=== PATIENT | male | born 1960 | race Caucasian/White ===

== ENCOUNTER → 2018-09-02 10:58 | Outpatient (CLI) | payer OTHER, SELFPAY ==
--- NOTE | 2018-09-02 | DI.RAD.S_ITS ---
PROCEDURE: XR SHOULDER LT MIN 2V INDICATIONS: LEFT SHOULDER PAIN TECHNIQUE: 3 views of the shoulder were acquired. COMPARISON: None. FINDINGS: Bones: Mild acromioclavicular joint and glenohumeral joint osteoarthritis is seen. No fractures or dislocations. No suspicious bony lesions. Visualized ribs appear intact. Soft tissues: No suspicious soft tissue calcifications. IMPRESSION: Mild left shoulder joint osteoarthritis. Dictated by: Tera Cleaning M.D. on 09/02/2018 at 11:52 Approved by: Tera Cleaning M.D. on 09/02/2018 at 11:53
== END ==
PROVIDERS: PCP Family Medicine; Visit Provider Family Medicine
DX: M19.012 Primary osteoarthritis, left shoulder (principal)
CPT/HCPCS: 73030

== ENCOUNTER 2021-09-11 22:29 | Emergency (ER) | payer OTHER, SELFPAY ==
[2021-09-11 22:33] VITALS: BP 209/110; PULSE 84; RESP 20; TEMP 37; O2SAT 97; BMI 38.4
[2021-09-11 22:46] VITALS: BP 186/119; PULSE 86; O2SAT 97
[2021-09-11 23:00] VITALS: BP 181/106; PULSE 85; O2SAT 92
--- NOTE | 2021-09-11 23:07 | ED.GENADULT ---
HPI - General Adult General Chief complaint: Nasal Problem Stated complaint: Bloody Nose Time Seen by Provider: 09/11/21 22:50 Source: patient Mode of arrival: Ambulatory History of Present Illness HPI narrative: Patient is a 61-year-old male arrived by private vehicle for evaluation of a nose bleed. States that it started earlier today. He felt like it was coming from the right nostril and then eventually from both nostrils. Patient also hypertensive upon arrival. Denies chest pain and shortness of breath. Has been diagnosed with hypertension and was on blood pressure medication in the past but stopped taking it several years ago after the prescription ran out. Not on blood thinners. Related Data Previous Rx's Medication Instructions Recorded azithromycin 250 mg tablet 250 mg PO SEE INSTRUCTIONS #1 pac 06/02/16 (Zithromax) lisinopril 10 mg tablet 10 mg PO DAILY #30 tab 09/11/21 Allergies Allergy/AdvReac Type Severity Reaction Status Date / Time No Known Drug Allergies Allergy Verified 09/11/21 22:33 Review of Systems Constitutional Constitutional: Denies fever(s) and Denies headache(s) ENT Ears, Nose, Mouth, and Throat: Denies headache(s) Comments: Nosebleed Cardiovascular Cardiovascular: Reports as per HPI and Reports system reviewed and no additional complaints, except as documented Respiratory Respiratory: Reports as per HPI and Reports system reviewed and no additional complaints, except as documented Neurologic Neurologic: Denies headache(s) Hematologic/Lymphatic On Anticoagulants: No Patient History Medical History Hypertension Social History Smoking Status: Never smoker Smoking Status: Never smoker alcohol intake frequency: 3 or more drinks per day Substance Use Type: does not use Exam Initial Vital Signs Initial Vital Signs: Vital Signs Temperature 98.6 F 09/11/21 22:33 Pulse Rate 84 09/11/21 22:33 Respiratory Rate 20 09/11/21 22:33 Blood Pressure 209/110 H 09/11/21 22:33 Pulse Oximetry 97 09/11/21 22:33 HENMT Head: normal to inspection and normocephalic Nose: septum normal and other (Hematoma right nares) Resp Effort & Inspection: normal respiratory effort Cardio Rate: regular rate Skin General: no rashes or lesions noted Neuro General: patient alert, patient awake and moves all extremities Extrem General: normal to inspection and capillary refill normal Psych Appearance: grossly normal and well kempt Course Vital Signs Vital signs: Vital Signs - 8 hr 09/11/21 22:33 09/11/21 22:46 09/11/21 23:00 Temperature 98.6 F Pulse Rate 84 86 85 Respiratory Rate 20 Blood Pressure 209/110 H 186/119 H 181/106 H Pulse Oximetry 97 97 92 09/11/21 23:30 Temperature Pulse Rate 92 H Respiratory Rate Blood Pressure 181/105 H Pulse Oximetry Medical Decision Making MDM Narrative Medical decision making narrative: A nasal clamp was placed by nursing staff in triage. When I evaluated the patient the clamp was removed. There was no active bleeding. He was observed for period of time afterwards without any rebleeding. No indication for radiologic studies nor lab testing. Patient is hypertensive but it did improve in the ER without specific blood pressure lowering medications. I had a discussion with him regarding this. It appears that he has been on lisinopril in the past and that feel given his blood pressure today that he most likely has an underlying hypertension. He was given a prescription for lisinopril and instructed to contact his primary doctor for follow-up. He was given return precautions and follow-up instructions. He expressed understanding and agreement. Discharge Plan Departure Patient Disposition: Home Clinical Impression: Epistaxis, Hypertension Instructions: Essential Hypertension, DI for Nosebleed Activity Restrictions/Additional Instructions: I do recommend that you start taking the blood pressure medication as directed. Contact your primary doctor for a follow-up. Return to the emergency department for any new or worsening symptoms. Prescriptions: New lisinopril 10 mg tablet 10 mg PO DAILY Qty: 30 0RF No Action azithromycin [Zithromax] 250 MG tablet 250 mg PO SEE INSTRUCTIONS Qty: 1 0RF Referrals: John Gold MD [Primary Care Provider] -
[2021-09-11 23:30] VITALS: BP 181/105; PULSE 92
== END 2021-09-11 23:49 | disposition home or self-care (01) ==
PROVIDERS: Emergency Provider Emergency Medicine; PCP Family Medicine
DX: R04.0 Epistaxis (principal); I10 Essential (primary) hypertension
CPT/HCPCS: 99281

== ENCOUNTER 2022-02-18 17:14 | Observation (INO) | payer OTHER, SELFPAY ==
[2022-02-18] VITALS (16 sets, daily range): BP systolic 138–163; BP diastolic 73–92; PULSE 75–110; RESP 14–30; TEMP 36.8; O2SAT 91–97
--- NOTE | 2022-02-18 17:23 | DI.RAD.S_ITS ---
PROCEDURE: XR CHEST 1V INDICATIONS: chest pain TECHNIQUE: One view of the chest was acquired. COMPARISON: None. FINDINGS: Surgical changes and devices: None. Lungs and pleura: Lordotic positioning is noted, which partially obscures the lung bases. Lungs are clear. No pleural effusions or pneumothorax. Mediastinum: Mediastinal contours appear normal. Heart size is normal. Bones and chest wall: No suspicious bony lesions. Overlying soft tissues appear unremarkable. IMPRESSION: No acute cardiopulmonary abnormality. Dictated by: Byron Britton M.D. on 02/18/2022 at 17:36 Approved by: Byron Britton M.D. on 02/18/2022 at 17:37
[2022-02-18 17:53] LABS: Add Manual Diff / Slide Review NO; Basophils Absolute Auto 100 /uL (0-100); Basophils Percent Auto 0.8 % (0-2); Eosinophils Absolute Auto 100 /uL (0-450); Eosinophils Percent Auto 0.8 % (2-4); Hematocrit 47.3 % (41-53); Hemoglobin 16.5 g/dL (13.5-17.5); Lymphocytes Absolute Auto 1800 /uL (1100-4500); Lymphocytes Percent Auto 24.6 % (25-40); Mean Corpuscular HGB Conc 34.9 % (30-36); Mean Corpuscular Volume 91.7 fL (80-100); Monocytes Absolute Auto 600 /uL (0-900); Monocytes Percent Auto 7.9 % (3-14); Neutrophils Absolute Auto 4800 /uL (1500-7000); Neutrophils Percent Auto 65.9 % (50-75); Platelet Count 230 X10^3/uL (150-400); Red Blood Cell Count 5.16 X10^6/uL (4.5-5.9); Red Cell Distribution Width 13.7 % (11.6-14.8); White Blood Cell Count 7.3 X10^3/uL (4.5-11.0)
[2022-02-18 17:56] LABS: Alanine Aminotransferase 47 IU/L (<50); Albumin 4.9 g/dL (3.5-5.0); Albumin Globulin Ratio 1.3 (1.0-2.8); Alkaline Phosphatase 75 U/L (38-126); Aspartate Aminotransferase 41 IU/L (17-59); BUN Creatinine Ratio 15.1 (6-22); Bilirubin Total 0.9 mg/dL (0.2-1.3); Blood Urea Nitrogen 13 mg/dL (9-20); Calcium 9.5 mg/dL (8.4-10.2); Carbon Dioxide 26 mmol/L (22-32); Chloride 98 mmol/L (98-107); Creatine Kinase 69 U/L (55-170); Estimated Glomerular Filt Rate > 60 mL/min (>60); Globulin 3.7 g/dL (1.7-4.1); Glucose 154 mg/dL (80-110); HEMOLYSIS < 15 (0-50); Lipase 58 U/L (23-300); Magnesium 1.6 mg/dL (1.6-2.3); Potassium 4.1 mmol/L (3.4-5.1); Sodium 137 mmol/L (137-145); Total Protein 8.6 g/dL (6.3-8.2)
--- NOTE | 2022-02-18 18:03 | ED.DIZZY ---
HPI - Dizziness General Chief Complaint: Dizziness Stated Complaint: dizzy, weakness Time Seen by Provider: 02/18/22 18:00 Source: patient Mode of arrival: Wheelchair History of Present Illness HPI Narrative: 61M nonsmoker with history of HTN presents with his in the chief complaint of significant dizziness associated with nausea and vomiting since last night. He denies any fever or chills nor any recent trauma or head injury. He states that he thinks it started rather suddenly and seems to be consistent with the room spinning. He states that if he closes his eyes and lays flat his symptoms completely resolve but if he sits up or turns his head he becomes profoundly dizzy and vomits. He denies any medication or dietary change. He denies any history of the same. He is had no chest pain or shortness of breath nor abdominal pain, diarrhea or constipation. He denies dysuria, frequency or urgency. He denies any recent diving, long distance travel or air travel Related Data Home Medications Medication Instructions Recorded Confirmed amlodipine 5 mg tablet 5 mg PO DAILY 02/18/22 02/18/22 Previous Rx's Medication Instructions Recorded lisinopril 10 mg tablet 10 mg PO DAILY #30 tabs 09/11/21 Allergies Allergy/AdvReac Type Severity Reaction Status Date / Time No Known Drug Allergies Allergy Verified 09/11/21 22:33 Review of Systems Review of Systems Narrative: GENERAL: Denies chills, fatigue, malaise, fever, sweats. HEENT: Denies sinus pain, ear pain, sore throat, difficulty swallowing, dizziness. RESPIRATORY: Denies dyspnea, cough, wheezing, hemoptysis, sputum. CARDIOVASCULAR: Denies chest pain, palpitations, orthopnea, edema, GASTROINTESTINAL: See HPI : Denies dysuria, frequency, incontinence, hematuria, urinary retention. MUSCULOSKELETAL: denies weakness, joint pain, or bony pain SKIN: Denies rash, skin lesions, or other NEUROLOGIC: See HPI PSYCHIATRIC: No concerning psychosocial issues. 12 point review of systems is negative except for those stated above Patient History Medical History Hypertension Social History household members: spouse Smoking Status: Never smoker alcohol intake: current Smoking Status: Never smoker alcohol intake frequency: 3 or more drinks per day Substance Use Type: does not use Exam Narrative Exam Narrative: GENERAL: [61] year old patient appears stated age. Well-developed patient, in obvious distress, holding an emesis bag HEAD: Atraumatic. Normocephalic. EYES: Pupils equal round and reactive. Extraocular motions intact. No scleral icterus. No injection or drainage. Horizontal nystagmus with fast twitch to the left, significantly worse when looking left than when looking right ENT: Nose without bleeding, purulent drainage. Throat without erythema, tonsillar hypertrophy or exudate. Airway patent. NECK: Trachea midline. Non tender CARDIOVASCULAR: Tachycardic but regular rhythm without murmurs, gallops, or rubs. RESPIRATORY: Clear to auscultation. Breath sounds equal bilaterally. No wheezes, rales, or rhonchi. GASTROINTESTINAL: Abdomen soft, non-tender, nondistended. EXTREMITIES: No edema or joint tenderness. BACK: Nontender without deformity or crepitance. No flank tenderness. NEURO: AOx3. SKIN: No rash or erythema of visible areas Initial Vital Signs Initial Vital Signs: Vital Signs Temperature 98.2 F 02/18/22 17:21 Pulse Rate 110 H 02/18/22 17:21 Respiratory Rate 24 02/18/22 17:21 Pulse Oximetry 96 02/18/22 17:21 Oxygen Delivery Method 02/18/22 17:21 Course Orders Ordered: ED Orders 02/18/22 20:33 COVID19 -Nasal RAPID/Pre-Proc Stat 02/18/22 21:17 CT head/brain wo con Stat Acetaminophen (Acetaminophen 325 Mg Tablet) 650 mg PO Q6HR PRN PRN Reason: Fever/Mild Pain (1-3) Amlodipine Besylate (Amlodipine 5 Mg Tablet) 5 mg PO DAILY [facility] Enoxaparin Sodium (Enoxaparin 40 Mg/0.4 Ml Syringe) 40 mg SUBCUT DAILY [facility] Sodium Chloride (Normal Saline 0.9%) 1,000 mls @ 60 mls/hr IV CONT KRYSTAL Last Admin: 02/19/22 01:58 Dose: 60 mls/hr Documented By: ANDRY Ketorolac Tromethamine (Ketorolac 30 Mg/Ml Vial) 30 mg IV Q6H [facility] Stop: 02/22/22 00:14 Last Admin: 02/19/22 01:58 Dose: 30 mg Documented By: ANDRY Lisinopril (Lisinopril 10 Mg Tablet) 10 mg PO DAILY [facility] Olanzapine (Olanzapine Odt 10 Mg Tab) 10 mg PO PRN PRN PRN Reason: Nausea And Vomiting Ondansetron HCl (Ondansetron 4 Mg/2 Ml Inj) 4 mg IV Q4HR PRN PRN Reason: Nausea And Vomiting Promethazine HCl (Promethazine 12.5 Mg Supp) 12.5 mg CO Q6HR PRN PRN Reason: Nausea And Vomiting Discontinued Medications Sodium Chloride (Normal Saline 0.9%) 1,000 mls @ 1,000 mls/hr IV BOLUS ONE Stop: 02/18/22 19:12 Last Infusion: 02/18/22 21:37 Dose: 0 mls/hr Documented By: Admin: 02/18/22 18:18 Dose: 1,000 mls/hr Documented By: FLORES Lorazepam (Lorazepam 2 Mg/Ml Inj) 1 mg IV NOW ONE Stop: 02/18/22 20:19 Last Admin: 02/18/22 20:23 Dose: 1 mg Documented By: GAVIN Meclizine HCl (Meclizine Hcl 12.5 Mg Tablet) 50 mg PO NOW ONE Stop: 02/18/22 18:55 Last Admin: 02/18/22 19:37 Dose: 50 mg Documented By: GLEN Ondansetron HCl (Ondansetron 4 Mg/2 Ml Inj) 4 mg IV NOW ONE Stop: 02/18/22 18:11 Last Admin: 02/18/22 18:18 Dose: 4 mg Documented By: FLORES Ondansetron HCl (Ondansetron 4 Mg/2 Ml Inj) 4 mg IV NOW ONE Stop: 02/18/22 21:57 Last Admin: 02/18/22 21:58 Dose: 4 mg Documented By: GAVIN Pantoprazole Sodium (Pantoprazole 40 Mg Vial) 40 mg IV NOW ONE Stop: 02/18/22 18:55 Last Admin: 02/18/22 19:00 Dose: 40 mg Documented By: GAVIN Scopolamine (Scopolamine 1 Patch) 1 patch TOP NOW ONE Stop: 02/19/22 00:16 Last Admin: 02/19/22 01:56 Dose: 1 patch Documented By: ANDRY Vital Signs Vital signs: Vital Signs - 8 hr 02/18/22 19:44 02/18/22 19:00 02/18/22 19:00 Pulse Rate 75 88 Respiratory Rate 14 26 H Blood Pressure 148/79 H 147/87 H Pulse Oximetry 95 94 Oxygen Delivery Method Room Air 02/18/22 19:30 02/18/22 19:30 02/18/22 20:00 Pulse Rate 85 Respiratory Rate 25 H Blood Pressure 148/79 H 153/82 H Pulse Oximetry 93 Oxygen Delivery Method 02/18/22 20:00 02/18/22 20:30 02/18/22 20:30 Pulse Rate 85 85 Respiratory Rate 20 24 Blood Pressure 150/79 H Pulse Oximetry 94 92 Oxygen Delivery Method 02/18/22 22:14 02/18/22 22:14 02/18/22 22:30 Pulse Rate 99 H 97 H Respiratory Rate Blood Pressure 146/92 H Pulse Oximetry 92 94 Oxygen Delivery Method Room Air 02/18/22 23:00 02/18/22 23:30 02/19/22 00:00 Pulse Rate 102 H 87 89 Respiratory Rate Blood Pressure Pulse Oximetry 93 91 93 Oxygen Delivery Method MDM - Dizziness Lab Data Result diagrams: 02/18/22 17:34 02/18/22 17:34 Labs: Lab Results 02/18/22 02/18/22 02/18/22 Range/Units 17:24 17:34 17:34 WBC 7.3 (4.5-11.0) X10^3/uL RBC 5.16 (4.5-5.9) X10^6/uL Hgb 16.5 (13.5-17.5) g/dL Hct 47.3 (41-53) % MCV 91.7 (80-100) fL MCH 32.0 (26-34) PG MCHC 34.9 (30-36) % RDW 13.7 (11.6-14.8) % Plt Count 230 (150-400) X10^3/uL Neut % (Auto) 65.9 (50-75) % Lymph % (Auto) 24.6 L (25-40) % [place] % (Auto) 7.9 (3-14) % Eos % (Auto) 0.8 L (2-4) % Baso % (Auto) 0.8 (0-2) % Neut # (Auto) 4800 (9510-4897) /uL Lymph # (Auto) 1800 (6750-9347) /uL [place] # (Auto) 600 (0-900) /uL Eos # (Auto) 100 (0-450) /uL Baso # (Auto) 100 (0-100) /uL Sodium 137 (137-145) mmol/L Potassium 4.1 (3.4-5.1) mmol/L Chloride 98 (98-107) mmol/L Carbon Dioxide 26 (22-32) mmol/L BUN 13 (9-20) mg/dL Creatinine 0.86 (0.66-1.25) mg/dL Estimated GFR > 60 (>60) mL/min BUN/Creatinine Ratio 15.1 (6-22) Glucose 154 H (80-110) mg/dL Hemoglobin A1c 5.5 (4.0-6.0) % Calcium 9.5 (8.4-10.2) mg/dL Magnesium 1.6 (1.6-2.3) mg/dL Total Bilirubin 0.9 (0.2-1.3) mg/dL AST 41 (17-59) IU/L ALT 47 (<50) IU/L Alkaline Phosphatase 75 (38-126) U/L Total Creatine Kinase 69 (55-170) U/L CK-MB (CK-2) TNP CK-MB (CK-2) Rel Index TNP Troponin I < 0.012 (0.01-0.034) ng/mL Total Protein 8.6 H (6.3-8.2) g/dL Albumin 4.9 (3.5-5.0) g/dL Globulin 3.7 (1.7-4.1) g/dL Albumin/Globulin Ratio 1.3 (1.0-2.8) Lipase 58 (23-300) U/L SARS-CoV-2 (PCR) (Negative) 02/18/22 Range/Units 20:33 WBC (4.5-11.0) X10^3/uL RBC (4.5-5.9) X10^6/uL Hgb (13.5-17.5) g/dL Hct (41-53) % MCV (80-100) fL MCH (26-34) PG MCHC (30-36) % RDW (11.6-14.8) % Plt Count (150-400) X10^3/uL Neut % (Auto) (50-75) % Lymph % (Auto) (25-40) % [place] % (Auto) (3-14) % Eos % (Auto) (2-4) % Baso % (Auto) (0-2) % Neut # (Auto) (2121-4110) /uL Lymph # (Auto) (5307-8790) /uL [place] # (Auto) (0-900) /uL Eos # (Auto) (0-450) /uL Baso # (Auto) (0-100) /uL Sodium (137-145) mmol/L Potassium (3.4-5.1) mmol/L Chloride (98-107) mmol/L Carbon Dioxide (22-32) mmol/L BUN (9-20) mg/dL Creatinine (0.66-1.25) mg/dL Estimated GFR (>60) mL/min BUN/Creatinine Ratio (6-22) Glucose (80-110) mg/dL Hemoglobin A1c (4.0-6.0) % Calcium (8.4-10.2) mg/dL Magnesium (1.6-2.3) mg/dL Total Bilirubin (0.2-1.3) mg/dL AST (17-59) IU/L ALT (<50) IU/L Alkaline Phosphatase (38-126) U/L Total Creatine Kinase (55-170) U/L CK-MB (CK-2) CK-MB (CK-2) Rel Index Troponin I (0.01-0.034) ng/mL Total Protein (6.3-8.2) g/dL Albumin (3.5-5.0) g/dL Globulin (1.7-4.1) g/dL Albumin/Globulin Ratio (1.0-2.8) Lipase (23-300) U/L SARS-CoV-2 (PCR) Negative (Negative) Imaging Data CT scan - head: Radiologist's Impression: [address] [address] [address] Scan Report Signed Patient: Tylor Garcia MR#: [id number] : 1960 Acct:[id number] Age/Sex: 61 / M Date of Service: 02/18/22 Loc: ED Accession Number: [id number] ?? Procedure: CT head/brain wo con Ordering Provider: Buck Hahn D.O. PROCEDURE:? CT HEAD/BRAIN WO CON ? INDICATIONS:? profound dizziness, not improved with typical therapies ? TECHNIQUE:? Noncontrast 4.5 mm thick angled axial sections acquired from the foramen magnum to the vertex, with coronal and sagittal reformats.? For radiation dose reduction, the following was used:? automated exposure control, adjustment of mA and/or kV according to patient size.? ? COMPARISON:? [facility], CT, HEAD WITHOUT CONTRAST, 07/29/2010, 9:49. ? FINDINGS:? Image quality:? Excellent.? ? CSF spaces:? Basal cisterns are patent.? No extra-axial fluid collections.? Ventricles are normal in size and shape.? ? Brain:? No intracranial hemorrhage, mass, or mass effect.? Morales-white matter interface appears preserved.? ? Skull and face:? Calvarium and visualized facial bones are intact, without suspicious lesions.? ? Sinuses:? Visualized sinuses and mastoids are clear.? ? IMPRESSION:? ? 1. No acute intracranial abnormality.? ? Dictated by: Jorge Croft M.D. on 02/18/2022 at 22:17 ? ? Approved by: Jorge Croft M.D. on 02/18/2022 at 22:18 ? [facility] Narrative Medical decision making narrative: Patient with profound reproducible dizziness and nystagmus with minimal improvement after fluids, meclizine, Zofran, and Ativan. Head CT is unremarkable. Patient requires hospitalization for stabilization condition and further evaluation for possible posterior circulation stroke with likely MRI. Despite multiple medications he is not tolerating orals and has persistent vomiting Discharge Plan Departure Patient Disposition: Admitted as Observation Clinical Impression: Vertigo, Intractable vomiting Admit Date/Time: 02/19/22 00:03 Admit Provider: Edelmira Rodriguez
[2022-02-18 18:08] LABS: Troponin I < 0.012 ng/mL (0.01-0.034)
[2022-02-18] MEDS: ONDANSETRON 4 MG/2 ML INJ IV ×2 (18:18→21:58)
[2022-02-18] MEDS: SODIUM CHLORIDE 0.9% 1,000 ML 1000 ML IV (18:18)
[2022-02-18] MEDS: PANTOPRAZOLE 40 MG VIAL IV (19:00)
[2022-02-18] MEDS: MECLIZINE HCL 12.5 MG TABLET 50 MG PO (19:37)
[2022-02-18] MEDS: LORazepam 2 MG/ML INJ 1 MG IV (20:23)
--- NOTE | 2022-02-18 21:17 | DI.CT.S_ITS ---
PROCEDURE: CT HEAD/BRAIN WO CON INDICATIONS: profound dizziness, not improved with typical therapies TECHNIQUE: Noncontrast 4.5 mm thick angled axial sections acquired from the foramen magnum to the vertex, with coronal and sagittal reformats. For radiation dose reduction, the following was used: automated exposure control, adjustment of mA and/or kV according to patient size. COMPARISON: [facility], CT, HEAD WITHOUT CONTRAST, 07/29/2010, 9:49. FINDINGS: Image quality: Excellent. CSF spaces: Basal cisterns are patent. No extra-axial fluid collections. Ventricles are normal in size and shape. Brain: No intracranial hemorrhage, mass, or mass effect. Morales-white matter interface appears preserved. Skull and face: Calvarium and visualized facial bones are intact, without suspicious lesions. Sinuses: Visualized sinuses and mastoids are clear. IMPRESSION: 1. No acute intracranial abnormality. Dictated by: Jorge Croft M.D. on 02/18/2022 at 22:17 Approved by: Jorge Croft M.D. on 02/18/2022 at 22:18
--- NOTE | 2022-02-18 21:50 | PC.NURSE ---
patient back from CT scan. patient reports nausea and vomiting. provider aware and verbal order for zofran 4mg IV.
[2022-02-18 23:05] LABS: COVID19 -Nasal RAPID Negative (Negative)
[2022-02-19] VITALS: PULSE 89; O2SAT 93
[2022-02-19 00:10] VITALS: BP 147/97; PULSE 93; RESP 18; TEMP 37.2; O2SAT 97
--- NOTE | 2022-02-19 00:18 | DI.MRI.S_ITS ---
PROCEDURE: MR STROKE Pre- and post-contrast brain MRI, non-contrast brain MR angiogram, pre- and postcontrast neck MR angiogram INDICATIONS: vertigo intractable n/v TECHNIQUE: Brain: Noncontrast axial T1 spin echo, axial T2 fast spin echo, sagittal and axial FLAIR, coronal T2 fast spin echo, axial gradient echo, axial diffusion and ADC through the brain. After the administration of contrast, axial 3D VIBE of the cranial vasculature and brain. Brain MRA: Non-contrast 3-D time of flight MR angiogram, with multiple esehnft-iegbjqixn-aqnzxjgcrc (MIP) reformats performed. Neck MRA: Axial and sagittal TruFISP through the neck. Coronal dynamic MR angiogram during administration of contrast in the arterial and venous phases, with 3-dimenstional zomczoj-nrqypuldj-rosmyagnpd (MIP) reformats constructed from subtraction images. COMPARISON: [facility], CT, CT HEAD/BRAIN WO CON, 02/18/2022, 21:45. FINDINGS: Image quality: Excellent. BRAIN: CSF spaces: Ventricles are normal in size and shape. Basal cisterns are patent. No extra-axial fluid collections. Brain: No intracranial bleeds or mass effects. Morales-white matter interface is normal. Diffusion weighted images show no acute ischemic insults. Brainstem appears normal. Normal intravascular flow voids are present. No abnormal intracranial enhancement. Skull and face: Calvarial marrow signal is normal. Orbits appear normal. Sinuses: Sinuses and mastoids are clear. BRAIN MR ANGIOGRAM: Anterior circulation: Intracranial internal carotid arteries are normal in size and enhancement. The flow within the paired anterior cerebral arteries is normal and symmetric. The flow within the middle cerebral arteries is normal and symmetric. The anterior communicating artery is seen. No stenoses, occlusions, or aneurysms. Posterior circulation: The visualized portions of the vertebral arteries demonstrate normal caliber, and join to form a normal appearing basilar artery. The flow within the posterior cerebral arteries is normal and symmetric. No stenoses, occlusions, or aneurysms. NECK MR ANGIOGRAM: Carotids: Great vessels demonstrate a conventional anatomy as they arise from the aortic arch. The origins of the common carotid arteries appear patent. The calibers and courses of both common carotid arteries are normal. The bifurcation regions appear normal bilaterally. The internal carotid arteries demonstrate normal course and caliber. Posterior circulation: The origins of the vertebral arteries appear patent. More superior portions of both vertebral arteries demonstrate normal course and caliber, and join to form a normal appearing basilar artery. Miscellaneous: Subclavian arteries appear patent. Pre-contrast images through the neck show no soft tissue abnormalities. IMPRESSION: BRAIN MRI: No evidence of acute infarction. No intracranial bleed, midline shift or mass effect. No area of abnormal intracranial enhancement. BRAIN MR ANGIOGRAM: No hemodynamically significant stenosis or aneurysm is seen in visualized intracranial circulation. NECK MR ANGIOGRAM: No hemodynamically significant stenosis are noted in bilateral carotid arteries and vertebral arteries. Dictated by: Tera Cleaning M.D. on 02/19/2022 at 8:36 Approved by: Tera Cleaning M.D. on 02/19/2022 at 8:39
[2022-02-19 00:20] VITALS: BMI 40.9
--- NOTE | 2022-02-19 00:21 | PC.NURSE ---
Pt arrived to @0015 via w/c on RA, denies px, and reports feeling dizzy after standing up. Pt oriented to room, call light within reach, and bed is locked and in low position.
[2022-02-19] MEDS: SCOPOLAMINE 1 PATCH TOP (01:56)
[2022-02-19] MEDS: SODIUM CHLORIDE 0.9% 1,000 ML 60 ML IV (01:58)
[2022-02-19] MEDS: KETOROLAC 30 MG/ML VIAL IV ×2 (01:58→05:55)
[2022-02-19 02:02] LABS: Hemoglobin A1C% w Est Avg Glu 5.5 % (4.0-6.0)
[2022-02-19 04:00] VITALS: BP 133/80; PULSE 71; RESP 16; TEMP 36.5; O2SAT 98
--- NOTE | 2022-02-19 05:29 | P.HP_ITS ---
History of Present Illness History of Present Illness Date Patient Seen: 02/19/22 Time Patient Seen: 12:21 Chief complaint: dizzy, weakness Narrative: Tylor Garcia is a 61 year old male with history of HTN presented with a chief complaint of significant dizziness associated with nausea and vomiting since last night.? He denies any fever, body aches, chills, nasal congestion, eye irritation, cough, ear infections, injury or pain, no recent travel to altitude, air travel, or diving, no recent illness injury, trauma or head injury.? He states that he thinks it started rather suddenly last evening while moving around at home, reports the room spinning as spinning.? He states that if he closes his eyes and lays flat his symptoms completely resolve but if he sits up or turns his head he becomes profoundly dizzy and vomits, observed horizontal rotary nystagmus to the left, He denies any medication or dietary change.? He denies any history of the same. Though patient notes he did have a nasal septal issue when he went to altitude approximately 30 years ago. Patient denies chest pain, shortness of breath, abdominal pain, diarrhea, constipation, dysuria, frequency or urgency.? Patient denies any cardiopulmonary history. Patient is examined for admits in the ED he is resting comfortably in bed and states in this position he has no symptoms at this time, he last vomited a couple hours ago, patient has received fluids Zofran, Protonix, meclizine, and Ativan in the ED but continued to fail oral challenge. Patient's vitals are stable upon admit temp 98.2?, BP 146/92, HR 99, R 24, O2 saturation 92% on room air. Patient's CBC and CMP are all within normal limits with the exception of a glucose of 154 with no reported history of diabetes, lipase and COVID are negative, head CT is negative for any intracranial process, chest x-ray is negative for any cardiopulmonary process. I personally reviewed patient's EKG normal sinus rhythm, rate 91, without ST or T-wave changes. Patient admitted for intractable nausea vomiting with vertigo, and hypergylcemia. Patient History Medical History (Updated 02/19/22 @ 05:41 by MELLISSA Guthrie) Hypertension Morbid obesity with BMI of 40.0-44.9, adult Comment: No Prior Surgical Procedures Family & Social History Family History Father Hypertension Mother Hypertension Social History: household members spouse, retired Prior Living Arrangements House Safety & Behavioral: Feels Safe in Current Yes Environment Been Physically Hurt or No Threatened By a Person Tobacco & Substance use: Smoking Status Never smoker alcohol intake current alcohol intake frequency a few times a week Substance Use Type does not use Meds Home Medications and Allergies Home Medications Medication Instructions Recorded Confirmed Type lisinopril 10 mg tablet 10 mg PO DAILY #30 tabs 09/11/21 02/18/22 Rx amlodipine 5 mg tablet 5 mg PO DAILY 02/18/22 02/18/22 History Allergies Allergy/AdvReac Type Severity Reaction Status Date / Time No Known Drug Allergies Allergy Verified 09/11/21 22:33 Review of Systems Review of Systems Narrative: All 12 point systems reviewed with the patient and are negative except otherwise documented. Exam Vital Signs (past 8 hours): - 02/18/22 22:14 02/18/22 22:14 02/18/22 22:30 Temperature Pulse Rate 99 H 97 H Respiratory Rate Blood Pressure 146/92 H Pulse Oximetry 92 94 Oxygen Delivery Method Room Air Oxygen Flow Rate 02/18/22 23:00 02/18/22 23:30 02/19/22 00:00 Temperature Pulse Rate 102 H 87 89 Respiratory Rate Blood Pressure Pulse Oximetry 93 91 93 Oxygen Delivery Method Oxygen Flow Rate 02/19/22 00:10 02/19/22 00:20 Temperature 99.0 F Pulse Rate 93 H Respiratory Rate 18 Blood Pressure 147/97 H Pulse Oximetry 97 Oxygen Delivery Method Room Air Oxygen Flow Rate 0 Oxygen Delivery Method Room Air Oxygen Flow Rate 0 Narrative Exam Narrative: GENERAL: Pleasant morbidly obese 61-year-old male in obvious distress. HEAD: Atraumatic. Normocephalic. EYES: Pupils equal round and reactive. Extraocular motions intact. No scleral icterus. No injection or drainage.? Horizontal nystagmus with fast twitch to the left, significantly worse when looking left than when looking right ENT: Nose without bleeding, purulent drainage. Throat without erythema, tonsillar hypertrophy or exudate. Airway patent. NECK: Trachea midline. Non tender CARDIOVASCULAR:? regular rhythm without murmurs, gallops, or rubs. RESPIRATORY: Lung sounds in all rebol[place] Clear to auscultation. Breath sounds equal bilaterally. No wheezes, rales, or rhonchi.? GASTROINTESTINAL: Abdomen firm, non-tender, rounded habitus- nondistended, bowel sounds present in all 4 quadrants. EXTREMITIES: No edema or joint tenderness. BACK: Nontender without deformity or crepitance. No flank tenderness. NEURO: AOx3. SKIN: No rash or erythema of visible areas Objective Labs Result Diagrams: 02/18/22 17:34 02/18/22 17:34 Labs: Laboratory Results - last 24 hr 02/18/22 02/18/22 02/18/22 17:24 17:34 17:34 WBC 7.3 RBC 5.16 Hgb 16.5 Hct 47.3 MCV 91.7 MCH 32.0 MCHC 34.9 RDW 13.7 Plt Count 230 Neut % (Auto) 65.9 Lymph % (Auto) 24.6 L Chase % (Auto) 7.9 Eos % (Auto) 0.8 L Baso % (Auto) 0.8 Neut # (Auto) 4800 Lymph # (Auto) 1800 Chase # (Auto) 600 Eos # (Auto) 100 Baso # (Auto) 100 Sodium 137 Potassium 4.1 Chloride 98 Carbon Dioxide 26 BUN 13 Creatinine 0.86 Estimated GFR > 60 BUN/Creatinine Ratio 15.1 Glucose 154 H Hemoglobin A1c 5.5 Calcium 9.5 Magnesium 1.6 Total Bilirubin 0.9 AST 41 ALT 47 Alkaline Phosphatase 75 Total Creatine Kinase 69 CK-MB (CK-2) TNP CK-MB (CK-2) Rel Index TNP Troponin I < 0.012 Total Protein 8.6 H Albumin 4.9 Globulin 3.7 Albumin/Globulin Ratio 1.3 Lipase 58 SARS-CoV-2 (PCR) 02/18/22 20:33 WBC RBC Hgb Hct MCV MCH MCHC RDW Plt Count Neut % (Auto) Lymph % (Auto) Chase % (Auto) Eos % (Auto) Baso % (Auto) Neut # (Auto) Lymph # (Auto) Chase # (Auto) Eos # (Auto) Baso # (Auto) Sodium Potassium Chloride Carbon Dioxide BUN Creatinine Estimated GFR BUN/Creatinine Ratio Glucose Hemoglobin A1c Calcium Magnesium Total Bilirubin AST ALT Alkaline Phosphatase Total Creatine Kinase CK-MB (CK-2) CK-MB (CK-2) Rel Index Troponin I Total Protein Albumin Globulin Albumin/Globulin Ratio Lipase SARS-CoV-2 (PCR) Negative Assessment & Plan Assessment & Plan narrative: Tylor Garcia is a 61 year old male with history of morbid obesity and HTN presented with acute onset dizziness associated with nausea and vomiting, who after repeated medications fluids and interventions in the ED failed oral challenge and has been admitted for observation. 1. Intractable nausea vomiting and vertigo, acute onset, present on admission -patient's initial workup is unremarkable at this time, suspect this is benign paroxysmal positional vertigo. -patient NPO overnight, continue antiemetics, also scopolamine patch. -gentle rehydration and S at 60 cc/HR -MRI ordered for tomorrow -PT and OT evaluation (Julia-Hallpike Maneuvers) 2. Hypertension, essential, chronic, present on admission -admitting BP 146/92 - sips of water to continue amlodipine/lisinopril 3. Morbid obesity as evidence by BMI of 41, acute on chronic, present on admission -dietary consult placed regarding nutritional Education, lifestyle modification, and weight loss. 4. Hyperglycemia without the diagnosis of diabetes, acute, present on admission -admitting blood sugar 154 -A1c ordered to evaluate for diabetes Code status: Full Surrogate decision maker: Danae HERNANDEZ PCR:Negative DVT/VTE prophylaxis: Lovenox and SCDs Disposition: Patient admitted for observation, expected length of stay less than 2 midnights. I have utilized all available immediate resources to obtain, update, or review the patient's current medications. I confirmed that the patient's advanced care plan is present, Code status is documented and/or surrogate decision maker is listed in the patient's medical record. Time Spent With Patient Critical Care time: I spent a total of [] minutes of critical care time on this patient's care today; this time is exclusive of procedural time. Quality VTE Deep Vein Thrombosis/Pulmonary Embolism Present on Admission: No
[2022-02-19 06:36] LABS: Add Manual Diff / Slide Review NO; Basophils Absolute Auto 0 /uL (0-100); Basophils Percent Auto 0.2 % (0-2); Eosinophils Absolute Auto 100 /uL (0-450); Eosinophils Percent Auto 0.8 % (2-4); Hematocrit 42.2 % (41-53); Hemoglobin 14.9 g/dL (13.5-17.5); Lymphocytes Absolute Auto 1700 /uL (1100-4500); Lymphocytes Percent Auto 23.5 % (25-40); Mean Corpuscular HGB Conc 35.3 % (30-36); Mean Corpuscular Hemoglobin 32.2 PG (26-34); Mean Corpuscular Volume 91.2 fL (80-100); Monocytes Absolute Auto 800 /uL (0-900); Monocytes Percent Auto 11.2 % (3-14); Neutrophils Absolute Auto 4700 /uL (1500-7000); Neutrophils Percent Auto 64.3 % (50-75); Platelet Count 202 X10^3/uL (150-400); Red Blood Cell Count 4.63 X10^6/uL (4.5-5.9); Red Cell Distribution Width 13.5 % (11.6-14.8); White Blood Cell Count 7.4 X10^3/uL (4.5-11.0)
[2022-02-19 06:39] LABS: BUN Creatinine Ratio 15.7 (6-22); Blood Urea Nitrogen 14 mg/dL (9-20); Calcium 8.5 mg/dL (8.4-10.2); Carbon Dioxide 29 mmol/L (22-32); Chloride 101 mmol/L (98-107); Estimated Glomerular Filt Rate > 60 mL/min (>60); Glucose 94 mg/dL (80-110); HEMOLYSIS < 15 (0-50); Potassium 3.7 mmol/L (3.4-5.1); Sodium 139 mmol/L (137-145)
[2022-02-19 07:51] LABS: Appearance Urine UA CLEAR; Bilirubin Urine UA NEGATIVE (NEGATIVE); Color Urine UA YELLOW; Glucose Urine UA NEGATIVE (Negative); Ketones Urine UA 1+ (NEGATIVE); Leukocyte Esterase Urine UA NEGATIVE (NEGATIVE); Nitrite Urine UA NEGATIVE (Negative); Occult Blood Urine UA NEGATIVE (Negative); Protein Urine UA TRACE (Negative); Urobilinogen Urine UA 0.2 E.U./dL (0.2); pH Urine UA 6.5 (4.5-8.0)
[2022-02-19 07:58] LABS: Bacteria Urine None Seen; Culture Indicated Urine Cult Not Indicated; RBC Urine None Seen (0-5/HPF); Urine Comments Microscopic Normal; WBC Urine None Seen (0-5/HPF)
[2022-02-19 08:00] VITALS: BP 137/84; PULSE 79; RESP 18; TEMP 36.2; O2SAT 95
[2022-02-19] MEDS: lisinopriL 10 MG TABLET PO (08:32)
[2022-02-19] MEDS: AMLODIPINE 5 MG TABLET PO (08:32)
[2022-02-19] MEDS: ENOXAPARIN 40 MG/0.4 ML SYRINGE SUBCUT (08:32)
--- NOTE | 2022-02-19 09:05 | CM.DANOTE ---
DCP Assessment: Payor confirmed: Sanford clark PCP confirmed: MD Asif Pt is a 61 y.o. M who presented to the ER with a chief complaint of dizziness with nausea and vomiting. Management was started in the ED but symptoms persisted. CT was done and was unremarkable. Pt admitted to the floor for an MRI and further management of symptoms. DCP met with pt this morning to discuss discharge needs. Pt just got back from MRI and sitting up in bed. DCP introduced herself and role. Pt states he lives in a multi-level house with his , Danae, in [place]. Pt states he is fairly independent at baseline and denies any DME use. Pt still drives POV. Pt denies any previous HH use. Pt to have PT/OT evals today. No discharge needs at this time. DCP to continue to monitor and follow up with healthcare team. Whiteboard updated and instructed to call if needed. Pt thankful for discussion. P: Once medically stable, pt to discharge home via spouse POV. DCP to continue to follow. Carmen Pritchett RN/REMA Discharge Planning/Care Management CM Discharge Assessment Start: 02/19/22 09:04 Freq: Status: Active Protocol: Document 02/19/22 09:04 HEATHER (Rec: 02/19/22 09:05 HEATHER [id number]) Discharge Planning Assessment Assigned Sql Database Developer Carmen Pritchett RN/REMA Advance Directives? No History Provided By Patient Prior Living Arrangements House Household Members spouse Type of transporation used prior to Drives own vehicle admit Independent with ADL's Yes Is patient alert and oriented? Yes Caregiver for Another No Discharge Plan Home Referrals Initiated None needed Whiteboard Updated in Patient Room with Yes name and ext. # of Sql Database Developer Comment Instructed to call if needed Review Status In Process Please Provide Date Initial DC 02/19/22 Assessment Was Performed Next Review Type Continued Stay Review
--- NOTE | 2022-02-19 09:35 | PT.IIE ---
Medical History (Last Updated 02/19/22 @ 05:41 by Edelmira Rodriguez, [facility]) Hypertension Morbid obesity with BMI of 40.0-44.9, adult Physical Therapy Inpatient Evaluation/Re-Eval M1 PT/OT-IP Prior Functional Status Start: 02/19/22 12:36 Freq: NEEDED Status: Active Protocol: Document 02/19/22 09:35 AB (Rec: 02/19/22 12:50 AB [id number]) Medical Review Prior Functional Status Medical History Reviewed Yes Communication able to make needs known Mobility and Gait pt stated that he is independent with all mobilities and ambulation without AD Social History Household Members spouse Living Arrangements House Number of Floors (Floors) 3 or More Floors Number of Stairs To Enter/Railing? 22 steps with R rail descending but part of it do not have rails to enter the house 3 steps without rails to bedroom level 5 steps descent to living room with wide rails Home Environment Standard Height Toilet,High Toilet,Walk in Shower Additional Social History Comment has an adjustable bed M2 PT-IP Current Condition Start: 02/19/22 12:36 Freq: NEEDED Status: Active Protocol: Document 02/19/22 09:35 AB (Rec: 02/19/22 12:50 AB [id number]) Physical Therapy Current Condition Current Condition Evaluation Date 02/19/22 Treatment Diagnosis dizziness; difficulty in walking Onset Date 02/19/22 M3 PT-IP Subjective Start: 02/19/22 12:36 Freq: NEEDED Status: Active Protocol: Document 02/19/22 09:35 AB (Rec: 02/19/22 12:50 AB [email or web address]) Subjective Physical Therapy Visit Type Type Initial Evaluation Visit Start Time 09:35 Visit Stop Time 10:15 Total Visit Minutes 40 Number of DUST COLLECTOR Visits 0 Physical Therapy Visit Comments Patient Comments agreeable to do PT M4 PT-IP Mobility and Gait Start: 02/19/22 12:36 Freq: NEEDED Status: Active Protocol: Document 02/19/22 09:35 AB (Rec: 02/19/22 12:50 AB [email or web address]) PT-Bed Mobility Assessment Supine to Sit Supine to Sit Standby Assistance Sit to Supine Sit to Supine Standby Assistance PT-Transfer Assessment Sit to and From Stand Sit to and from Stand Standby Assistance Equipment Transfer Assistive Device None,Gait Belt Orthotic/Prosthetic Devices or Brace: No Comments Mobility Comments pt stated that dizziness is better and without spinning sensation but with slight head fuzziness. BP in supine: 146 /90. completed supine to sit SBA. able to sit on EOB SBA. no c/o dizziness but just fuzziness per pt. instructed to turn head side to side/ front/back and stated no dizziness. BP in sittin/ 100. ambulated in room without AD SBA to CGA ~ 30 ft. BP after walkin/84 presents with unsteady gait. completed up/down step stool CGA to min A with pt losing his balance and needing to hold on to wall for support. pt requested to go back to bed and completed SBA. Call light and table placed within reach. informed pt regarding vestibular assessment by another PT and pt agreed. Gait Assessment Gait Gait Assistance Required: Standby Assistance,Contact Guard Assist Distance (Feet) 30 Able to Maintain Weight Bearing Status Yes During Gait Assistive Devices Assistive Device None Orthotic/Prosthetic Devices or Brace: No Gait Deviations General Gait Pattern Ataxic,Decreased Stride Length ,Decreased Feet Clearance,Wide Based Gait Factors Limiting Gait Function Factors Limiting Gait Function Decreased Activity Tolerance, Decreased Strength,Poor Balance,Poor Safety Awareness Stair Climbing Assessment Evaluation Level of Assist On Stairs Minimal Assistance,1 Person Assistance Devices Stair Climbing Assistive Devices None Technique/Endurance Stair Climbing Direction Ascend and Descend Stair Climbing Technique Step to Step Number of Steps Climbed 1 Query Text: Stair Climbing Set # Repetitions (reps) 2 PT-Balance Assessment Sitting Balance and Reactions Static Sitting Balance Ability Normal Dynamic Sitting Balance Ability Normal Standing Balance and Reactions Static Standing Balance Ability Fair Dynamic Standing Balance Ability Poor Device Used without AD M5 PT-IP Objective Assessments Start: 02/19/22 12:36 Freq: NEEDED Status: Active Protocol: Document 02/19/22 09:35 AB (Rec: 02/19/22 12:50 AB [id number]) Orientation Orientation/Cognition Level of Alertness Alert Orientation Name,Place,Situation Language Function Ability No Deficits Noted Safety Awareness Understands Safety Issues Memory Description No Deficits Noted Gross Range of Motion Lower Extremity ROM Assessment Within Functional Limits Strength Lower Extremity Strength Assessment Within Functional Limits Sensation Assessment Sensation Gross Sensation WNL Muscle Tone Muscle Tone WNL Yes M6 PT-IP Treatment Start: 02/19/22 12:36 Freq: NEEDED Status: Active Protocol: Document 02/19/22 09:35 AB (Rec: 02/19/22 12:50 AB [id number]) Physical Therapy Treatment Education Education Provided Safety M7 PT-IP Assessment and Plan Start: 02/19/22 12:36 Freq: NEEDED Status: Active Protocol: Document 02/19/22 09:35 AB (Rec: 02/19/22 12:50 AB [id number]) PT Summary Assessment and Plan Potential Status of Condition at Evaluation Evolving Summary Impairments Balance,Gait,Activity Tolerance Assessment Summary pt requiring SBA to CGA with ambulation and presents with unsteady gait, needs CGA to min A with stair climbing with LOB. pt lives with spouse and spouse will be able to assist pt. will continue to assess progress. pt also will have vestibular assessment later today. Goals Bed Mobility Goal Independent Transfer Goal Independent Gait Goal Independent Gait Distance 250 Other Goals up/down 15 steps L rail ascending SBA up/down 15 steps without rail SBA Days to Meet Goals 10 Frequency of Treatment Frequency Of Treatment Twice a Day Treatment Plan Physical Therapy Treatment Plan Bed Mobility Training,Transfer Training,Gait Training, Therapeutic Exercise,Balance Retraining,Discharge Planning, Neuromuscular Re-ed, Coordination Retraining,Manual Therapy Recommendations To Nursing Amount of Assist Needed 1 Person Assist Discharge Recommendations PT Discharge Recommendations Home with Assistance, Outpatient PT Transportation Needs at Discharge Private Vehicle
--- NOTE | 2022-02-19 11:24 | DIET.CONS2 ---
Dietary Inpatient Consultation Note Admission Date: 02/19/2022 00:03 Holding on nutrition consult until pt less dizzy so he can actively participate. Diet: 02/19/22 00:11 NPO Diet Diet Modifications: May Advance Diet as Tolerated: Yes Safety Tray needed?: No NPO Type: NPO except for Ice Chips Electronically Signed by: Maria Hwang 02/19/22 11:24 Clinical Dietitian [address] [id number]
[2022-02-19 12:00] VITALS: BP 138/81; PULSE 61; RESP 18; TEMP 36.1; O2SAT 96
[2022-02-19] MEDS: MECLIZINE HCL 12.5 MG TABLET 25 MG PO (12:28)
--- NOTE | 2022-02-19 13:15 | PT.IIE ---
Medical History (Last Updated 02/19/22 @ 05:41 by Edelmira Rodriguez, [facility]) Hypertension Morbid obesity with BMI of 40.0-44.9, adult Physical Therapy Inpatient Evaluation/Re-Eval M1 PT/OT-IP Prior Functional Status Start: 02/19/22 12:36 Freq: NEEDED Status: Active Protocol: Document 02/19/22 12:04 DCW (Rec: 02/19/22 13:14 DCW [id number]) Medical Review Prior Functional Status Medical History Reviewed Yes Communication WNL Mobility and Gait WNL, Independent, no AD Social History Household Members spouse Living Arrangements House M2 PT-IP Current Condition Start: 02/19/22 12:36 Freq: NEEDED Status: Active Protocol: Document 02/19/22 12:04 DCW (Rec: 02/19/22 13:14 DCW [id number]) Physical Therapy Current Condition Current Condition Evaluation Date 02/19/22 Treatment Diagnosis Dizziness, vertigo Onset Date 02/18/22 M3 PT-IP Subjective Start: 02/19/22 12:36 Freq: NEEDED Status: Active Protocol: Document 02/19/22 12:04 DCW (Rec: 02/19/22 13:14 DCW [id number]) Subjective Physical Therapy Visit Type Type Initial Evaluation Visit Start Time 12:04 Visit Stop Time 12:40 Total Visit Minutes 36 Notes Pt presents with a one day history of sudden onset of spontaneous vertigo. Pt reports he felt slightly off balance 02/17/22, but then yesterday (02/18/22) he was very unstable, experiencing rotational vertigo, and could barely make it 20 feet to the bathroom. Pt reports nausea and vomiting. Pt was able to feel better if he were to lie down and not move, but any attempts at movement with cause dizziness, imbalance, and nausea. Feeling better today, but still off balance with standing and head movement. Number of PROCESS DESIGN ENGINEER Visits 0 Physical Therapy Visit Comments Patient Comments Pt reclining in bed upon PT entering room, entered room shortly afterward. Pt willing to participate in PT evaluation at this time. M4 PT-IP Mobility and Gait Start: 02/19/22 12:36 Freq: NEEDED Status: Active Protocol: Document 02/19/22 12:04 DCW (Rec: 02/19/22 13:14 DCW [id number]) PT-Bed Mobility Assessment Rolling Type of Rolling Roll to Left Level of Assist Independent Supine to Sit Supine to Sit Independent Scooting Scooting to Edge of Bed Independent PT-Transfer Assessment Sit to and From Stand Sit to and from Stand Standby Assistance Equipment Transfer Assistive Device Bed Rail Transfers Transfer Destination Bed,Chair Transfer Technique Stand Step Pivot Transfer Ability Level of Assist Independent,Standby Assistance PT-Balance Assessment Sitting Balance and Reactions Static Sitting Balance Ability Normal Dynamic Sitting Balance Ability Normal Standing Balance and Reactions Static Standing Balance Ability Good Dynamic Standing Balance Ability Fair M5 PT-IP Objective Assessments Start: 02/19/22 12:36 Freq: NEEDED Status: Active Protocol: Document 02/19/22 12:04 DCW (Rec: 02/19/22 13:14 DCW [id number]) Other Assessments Other Other Assessments Spontaneous nystagmus: Left- beating Gaze Nystagmus: 2? left- beating, worse without fixation Head Impulse Test: Positive Saccades and Smooth Pursuit: Affected by spontaneous left nystagmus M6 PT-IP Treatment Start: 02/19/22 12:36 Freq: NEEDED Status: Active Protocol: Document 02/19/22 09:35 AB (Rec: 02/19/22 12:50 AB [id number]) Physical Therapy Treatment Education Education Provided Safety M7 PT-IP Assessment and Plan Start: 02/19/22 12:36 Freq: NEEDED Status: Active Protocol: Document 02/19/22 12:04 DCW (Rec: 02/19/22 13:14 DCW [id number]) PT Summary Assessment and Plan Potential Rehabilitation Potential Good Status of Condition at Evaluation Unstable Summary Impairments Balance Assessment Summary Pt presents with signs and symptoms suggestive of vestibular neuritis vs anterior vestibular artery ischemia. Sudden onset of non- dosition dependent vertigo with symptoms of spontaneous, left-beating nystagmus, nausea , decreased balance, positive head impulse, and 2? gaze nystagmus all suggestive of unilateral vestibular loss. Lack of reported hearling loss should rule out Labrynthitis. Pt still in acute phase of vestibular loss, typical acute treatments include continued use of anti-nausea and anti- dizziness medications, following leveling off of symptoms, pt will likely greatly benefit from skilled outpatient vestibular rehabilitation. Goals Gait Goal Independent Gait Distance 100 Frequency of Treatment Frequency Of Treatment Once a Day Treatment Plan Physical Therapy Treatment Plan Neuromuscular Re-ed Other Recommendations and Next Treatment Vestibular rehab when out of Focus acute phase Recommendations To Nursing Amount of Assist Needed Standby Assistance Discharge Recommendations PT Discharge Recommendations Home Equipment Needed for Home Before May need FWW if instability Discharge continues Transportation Needs at Discharge Private Vehicle
--- NOTE | 2022-02-19 14:06 | PC.NURSE ---
Patient tolerated lunch and meclizine, claims he feels good
--- NOTE | 2022-02-19 14:27 | OT.IPNOTE ---
Attempted to see pt for OT eval and states feeling much better and that he will just take it slow at home and that his can assist him if needed. Suggested may be helpful to use a programs assistant to LB dressing needs and shower chair for safety. Pt not wanting any OT services and hospitalist notified, and left a message for case management. Discharge pt for OT services. NO charge.
--- NOTE | 2022-02-19 15:16 | P.DS_ITS ---
History of Present Illness History of Present Illness Date Patient Seen: 02/19/22 Chief complaint: dizzy, weakness Narrative: Per Edelmira Rodriguez, [facility]-: Tylor Garcia is a 61 year old male with history of HTN presented with a chief complaint of significant dizziness associated with nausea and vomiting since last night.? He denies any fever, body aches, chills, nasal congestion, eye irritation, cough, ear infections, injury or pain, no recent travel to altitude, air travel, or diving, no recent illness injury, trauma or head injury.? He states that he thinks it started rather suddenly last evening while moving around at home, reports the room spinning as spinning.? He states that if he closes his eyes and lays flat his symptoms completely resolve but if he sits up or turns his head he becomes profoundly dizzy and vomits, observed horizontal rotary nystagmus to the left, He denies any medication or dietary change.? He denies any history of the same. Though patient notes he did have a nasal septal issue when he went to altitude approximately 30 years ago. Patient denies chest pain, shortness of breath, abdominal pain, diarrhea, constipation, dysuria, frequency or urgency.? Patient denies any cardiopulmonary history. Patient is examined for admits in the ED he is resting comfortably in bed and states in this position he has no symptoms at this time, he last vomited a couple hours ago, patient has received fluids Zofran, Protonix, meclizine, and Ativan in the ED but continued to fail oral challenge. Patient's vitals are stable upon admit temp 98.2?, BP 146/92, HR 99, R 24, O2 saturation 92% on room air. Patient's CBC and CMP are all within normal limits with the exception of a glucose of 154 with no reported history of diabetes, lipase and COVID are negative, head CT is negative for any intracranial process, chest x-ray is nega tive for any cardiopulmonary process. I personally reviewed patient's EKG normal sinus rhythm, rate 91, without ST or T-wave changes. Patient admitted for intractable nausea vomiting with vertigo, and hypergylcemia. Discharge Providers Provider Date of admission: 02/19/22 00:03 Discharge Date: 02/19/22 Primary care physician: John Gold MD Consults: 02/19/22 00:17 Consult to Occupational Therapy Evaluate & Treat Comment: vertigo Physician Instructions: Evaluate and treat Consult to Physical Therapy Evaluate & Treat Comment: vertigo Physician Instructions: Evaluate and Treat 02/19/22 06:00 Consult to Dietitian, Adult Routine Comment: Reason For Exam: BMI 41 Discharge provider: Francisco Gurrola DO Summary Hospital Course Discharge Diagnosis: 1. Intractable nausea vomiting and vertigo, acute onset, present on admission 2. Hypertension, essential, chronic, present on admission 3. Morbid obesity as evidence by BMI of 41, acute on chronic, present on admission 4. Hyperglycemia without the diagnosis of diabetes, acute, present on admission Hospital Course: Tylor Garcia is a 61 year old male with history of morbid obesity and HTN presented with acute onset dizziness associated with nausea and vomiting, who after repeated medications fluids and interventions in the ED failed oral challenge and was admitted for further observation and given the severity of his presentation rule out for posterior CVA. Patient's MRI was negative for acute infarcts. He slowly began to improve with meclizine, and time. He was seen by PT and vestibular therapy. He felt improved and was able to ambulate unassisted and tolerate oral intake. He was discharged home with prescription for meclizine to continue as needed. Exam Vital Signs (past 8 hours): - 02/19/22 08:00 02/19/22 12:00 Temperature 97.1 F L 96.9 F L Pulse Rate 79 61 Respiratory Rate 18 18 Blood Pressure 137/84 138/81 Pulse Oximetry 95 96 Oxygen Flow Rate 0 0 Oxygen Delivery Method Room Air Oxygen Flow Rate 0 Narrative Exam Narrative: GENERAL: Pleasant morbidly obese 61-year-old male in obvious distress. HEAD: Atraumatic. Normocephalic. CARDIOVASCULAR:? regular rhythm without murmurs, gallops, or rubs. RESPIRATORY: Lung sounds in all [place] Clear to auscultation. Breath sounds equa l bilaterally. No wheezes, rales, or rhonchi.? GASTROINTESTINAL: Abdomen firm, non-tender, rounded habitus- nondistended, bowel sounds present in all 4 quadrants. EXTREMITIES: No edema or joint tenderness. BACK: Nontender without deformity or crepitance. No flank tenderness. NEURO: AOx3. No focal deficits SKIN: No rash or erythema of visible areas Objective Labs Result Diagrams: 02/19/22 06:05 02/19/22 06:05 Labs: Laboratory Results - last 24 hr 02/18/22 02/18/22 02/18/22 17:24 17:34 17:34 WBC 7.3 RBC 5.16 Hgb 16.5 Hct 47.3 MCV 91.7 MCH 32.0 MCHC 34.9 RDW 13.7 Plt Count 230 Neut % (Auto) 65.9 Lymph % (Auto) 24.6 L [place] % (Auto) 7.9 Eos % (Auto) 0.8 L Baso % (Auto) 0.8 Neut # (Auto) 4800 Lymph # (Auto) 1800 [place] # (Auto) 600 Eos # (Auto) 100 Baso # (Auto) 100 Sodium 137 Potassium 4.1 Chloride 98 Carbon Dioxide 26 BUN 13 Creatinine 0.86 Estimated GFR > 60 BUN/Creatinine Ratio 15.1 Glucose 154 H Hemoglobin A1c 5.5 Calcium 9.5 Magnesium 1.6 Total Bilirubin 0.9 AST 41 ALT 47 Alkaline Phosphatase 75 Total Creatine Kinase 69 CK-MB (CK-2) TNP CK-MB (CK-2) Rel Index TNP Troponin I < 0.012 Total Protein 8.6 H Albumin 4.9 Globulin 3.7 Albumin/Globulin Ratio 1.3 Lipase 58 Urine Color Urine Appearance Urine pH Ur Specific [place] Urine Protein Urine Glucose (UA) Urine Ketones Urine Occult Blood Urine Nitrate Urine Bilirubin Urine Urobilinogen Ur Leukocyte Esterase Urine RBC Urine WBC Urine Bacteria Ur Culture Indicated? Micro UA Comment SARS-CoV-2 (PCR) 02/18/22 02/19/22 02/19/22 20:33 06:05 06:05 WBC 7.4 RBC 4.63 Hgb 14.9 Hct 42.2 MCV 91.2 MCH 32.2 MCHC 35.3 RDW 13.5 Plt Count 202 Neut % (Auto) 64.3 Lymph % (Auto) 23.5 L [place] % (Auto) 11.2 Eos % (Auto) 0.8 L Baso % (Auto) 0.2 Neut # (Auto) 4700 Lymph # (Auto) 1700 [place] # (Auto) 800 Eos # (Auto) 100 Baso # (Auto) 0 Sodium 139 Potassium 3.7 Chloride 101 Carbon Dioxide 29 BUN 14 Creatinine 0.89 Estimated GFR > 60 BUN/Creatinine Ratio 15.7 Glucose 94 Hemoglobin A1c Calcium 8.5 Magnesium Total Bilirubin AST ALT Alkaline Phosphatase Total Creatine Kinase CK-MB (CK-2) CK-MB (CK-2) Rel Index Troponin I Total Protein Albumin Globulin Albumin/Globulin Ratio Lipase Urine Color Urine Appearance Urine pH Ur Specific [place] Urine Protein Urine Glucose (UA) Urine Ketones Urine Occult Blood Urine Nitrate Urine Bilirubin Urine Urobilinogen Ur Leukocyte Esterase Urine RBC Urine WBC Urine Bacteria Ur Culture Indicated? Micro UA Comment SARS-CoV-2 (PCR) Negative 02/19/22 07:45 WBC RBC Hgb Hct MCV MCH MCHC RDW Plt Count Neut % (Auto) Lymph % (Auto) [place] % (Auto) Eos % (Auto) Baso % (Auto) Neut # (Auto) Lymph # (Auto) [place] # (Auto) Eos # (Auto) Baso # (Auto) Sodium Potassium Chloride Carbon Dioxide BUN Creatinine Estimated GFR BUN/Creatinine Ratio Glucose Hemoglobin A1c Calcium Magnesium Total Bilirubin AST ALT Alkaline Phosphatase Total Creatine Kinase CK-MB (CK-2) CK-MB (CK-2) Rel Index Troponin I Total Protein Albumin Globulin Albumin/Globulin Ratio Lipase Urine Color Yellow Urine Appearance Clear Urine pH 6.5 Ur Specific [place] 1.010 Urine Protein Trace H Urine Glucose (UA) Negative Urine Ketones 1+ H Urine Occult Blood Negative Urine Nitrate Negative Urine Bilirubin Negative Urine Urobilinogen 0.2 Ur Leukocyte Esterase Negative Urine RBC None seen Urine WBC None seen Urine Bacteria None seen Ur Culture Indicated? Cult not indicated Micro UA Comment Microscopic normal SARS-CoV-2 (PCR) [facility] Medical History (Updated 02/19/22 @ 05:41 by MELLISSA Guthrie) Hypertension Morbid obesity with BMI of 40.0-44.9, adult Family History Father Hypertension Mother Hypertension Social History household members: spouse Smoking Status: Never smoker alcohol intake: current Discharge Plan Discharge Plan Patient Disposition: Home Provider Discharge Comment: You were admitted to the hospital with severe dizziness. Likely due to BPPV or stones in your ear canal. MRI was done and you did not have a stroke. Please continue meclizine 3-4 times a day for a couple of days, or until you have no symptoms, then you can use as needed when symptoms arise. Follow up with your PMD as previously scheduled. Discharge orders & Medications Prescriptions: New meclizine 25 mg tablet 25 mg PO TID PRN (Reason: dizziness) 30 Days Qty: 30 0RF Continued amlodipine 5 mg Tablet 5 mg PO DAILY lisinopril 10 mg tablet 10 mg PO DAILY Qty: 30 0RF Medication counseling provided by Pharmacist: Yes Follow up/Referrals: John Gold MD [Primary Care Provider] - Diet/Activity/Treatments Diet: Diet as Tolerated Activity: As tolerated Visit Report/Discharge Packet Instructions: Benign Paroxysmal Positional Vertigo Discharge Data Primary Care Provider: John Gold Attending Provider: Edelmira Rodriguez VTE Deep Vein Thrombosis/Pulmonary Embolism Present on Admission: No
== END 2022-02-19 16:07 | disposition home or self-care (01) ==
LOC: ED 18:00 → AC 02-19 00:04
PROVIDERS: Emergency Medicine; Admitting Provider Nurse Practitioner Family; Emergency Provider Emergency Medicine; PCP Family Medicine; Visit Provider Nurse Practitioner Family
DX: R42 Dizziness and giddiness (principal); R11.2 Nausea with vomiting, unspecified; R53.1 Weakness; R73.9 Hyperglycemia, unspecified; I10 Essential (primary) hypertension; E66.01 Morbid (severe) obesity due to excess calories; Z68.41 Body mass index [BMI] 40.0-44.9, adult; Z20.822 Contact with and (suspected) exposure to COVID-19
CPT/HCPCS: 36415; 70450; 70548; 70553; 71045; 80048; 80053; 81001; 82550; 83036; 83690; 83735; 84484; 85025; 87635; 93005; 96361; 96372; 96374; 96375; 96376; 97162; 97530; 99284; C9803; G0378; C9113; J1650; J1885; J2060; J2405

== ENCOUNTER → 2023-01-05 11:25 | Outpatient (CLI) | payer OTHER, SELFPAY ==
--- NOTE | 2023-01-05 | DI.RAD.S_ITS ---
PROCEDURE: XR LUMBAR SPINE 2-3V INDICATIONS: Low back pain, unspecified TECHNIQUE: 3 views of the lumbar spine were acquired. COMPARISON: [facility], , L-SPINE 2-3 VIEWS, 06/02/2012, 8:12. FINDINGS: And Soft tissues: Overlying bowel gas pattern is normal. No suspicious soft tissue calcifications. IMPRESSION: No acute osseous abnormality. 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 Dictated by: Evette Holt M.D. on 01/05/2023 at 16:59 Approved by: Evette Holt M.D. on 01/05/2023 at 17:03
== END ==
PROVIDERS: PCP Family Medicine; Referring Provider Family Medicine; Visit Provider Family Medicine
DX: M51.36 Other intervertebral disc degeneration, lumbar region (principal); M54.50 Low back pain, unspecified
CPT/HCPCS: 72100